=== PATIENT | male | born 1995 | race Caucasian/White ===

== ENCOUNTER 2016-12-25 04:27 | Emergency (ER) | payer BC, OTHER ==
[~2016-12-25] VITALS: Ht 182.9 cm; Wt 161.0 kg
[2016-12-25 04:35] VITALS: Ht 182.9 cm; Wt 161.0 kg
[2016-12-25] MEDS ORDERED: morphine 2 MG INJ IV STA (04:57)
[2016-12-25] MEDS ORDERED: METOCLOPRAMIDE 10 MG INJ IV STA (04:57)
[2016-12-25] MEDS ORDERED: SOD CHLORIDE 0.9% 1,000 ML IV STA (04:57)
[2016-12-25] MEDS ORDERED: CIPR500T4 PO (05:18)
--- NOTE | 2016-12-25 05:18 | ERD ---
ER Documentation Chief Complaint Date/Time DATE: 12/25/16 TIME: 05:17 Chief Complaint vomiting, diarrhea, body aches HPI 21-year-old male presents to emergency department for complaint of generalized abdominal pain and vomiting diarrhea and bodyaches for 2 weeks now. Patient was seen by primary doctor, was placed on medications, patient was taking ciprofloxacin, Zofran, to help with symptoms but only with mild relief. Patient states that symptoms actually got prolonged and worse. Patient is quite of generalized abdominal pain, cramping pain, 4/10 scale, is accompanying the other symptoms. Patient does not have any fever or chills. Patient does not have any recent travel. Patient denies any flank pain. Patient denies any blood in stool or black stool. ROS All systems reviewed and are negative except as per history of present illness. Medications Home Meds Active Scripts Metoclopramide* (Reglan*) 10 Mg Tablet, 10 MG PO Q6 Y for NAUSEA AND/OR VOMITING , #10 TAB Prov:LUIS ANGEL BRYANT PER DIEM PHYSICAL THERAPIST ASSISTANT 12/25/16 Ibuprofen* (Motrin*) 600 Mg Tab, 600 MG PO Q6H Y for PAIN AND OR ELEVATED TEMP, #30 TAB Prov:LUIS ANGEL BRYANT PER DIEM PHYSICAL THERAPIST ASSISTANT 12/25/16 Dicyclomine Hcl* (Bentyl*) 10 Mg Capsule, 20 MG PO QID, #20 CAP Prov:LUIS ANGEL BRYANT PER DIEM PHYSICAL THERAPIST ASSISTANT 12/25/16 Reported Medications Ciprofloxacin Hcl* (Ciprofloxacin Hcl*) Unknown Strength Tablet, PO BID for 7 Days, TAB 12/25/16 Allergies Allergies: Coded Allergies: No Known Allergy (Unverified , 12/25/16) PMhx/Soc Medical and Surgical Hx: pt denies Medical Hx, pt denies Surgical Hx Hx Alcohol Use: No Hx Substance Use: No Hx Tobacco Use: Yes Smoking Status: Current every day smoker Physical Exam Vitals Vital Signs Date Time Temp Pulse Resp B/P Pulse Ox O2 Delivery O2 Flow Rate FiO2 12/25/16 05:50 94 12/25/16 04:35 99.3 110 20 136/66 98 Physical Exam GENERAL: The patient is well developed and appropriate for usual state of health, in no apparent distress. CHEST: Clear to auscultation bilaterally. There are no rales, wheezes or rhonchi. HEART: Regular rate and rhythm. No murmurs, clicks, rubs or gallops. No S3 or S4. ABDOMEN: Soft, nontender and nondistended. Hyperactive bowel sounds. No rebound or guarding. No gross peritonitis. No gross organomegaly or masses. No Romero sign or McBurney point tenderness. BACK: No midline or flank tenderness. EXTREMITIES: Equal pulses bilaterally. There is no peripheral clubbing, cyanosis or edema. No focal swelling or erythema. Full range of motion. Grossly neurovascularly intact. NEURO: Alert and oriented. Cranial nerves 2-12 intact. Motor strength in all 4 extremities with 5/5 strength. Sensation grossly intact. Normal speech and gait. SKIN: There is no apparent rash or petechia. The skin is warm and dry. HEMATOLOGIC AND LYMPHATIC: There is no evidence of excessive bruising or lymphedema. No gross cervical, axillary, or inguinal lymphadenopathy. Result Diagram: 12/25/16 0505 12/25/16 0505 Results 24 hrs Laboratory Tests Test 12/25/16 05:05 12/25/16 05:22 Alanine Aminotransferase (ALT/SGPT) 114IU/L Albumin 3.6g/dl Albumin/Globulin Ratio 0.94 Alkaline Phosphatase 162IU/L Anion Gap 15 Aspartate Amino Transf (AST/SGOT) 65IU/L Basophils # 0.110^3/ul Basophils % 1.0% Blood Urea Nitrogen 6mg/dl Calcium Level 8.5mg/dl Carbon Dioxide Level 28mmol/L Chloride Level 99mmol/L Creatinine 0.78mg/dl Direct Bilirubin 0.00mg/dl Eosinophils # 0.710^3/ul Eosinophils % 5.2% Globulin 3.80g/dl Glucose Level 102mg/dl Hematocrit 39.8% Hemoglobin 13.5g/dl Indirect Bilirubin 0.5mg/dl Lipase 40U/L Lymphocytes # 2.110^3/ul Lymphocytes % 16.4% Mean Corpuscular Hemoglobin 30.3pg Mean Corpuscular Hemoglobin Concent 33.9g/dl Mean Corpuscular Volume 89.2fl Mean Platelet Volume 10.0fl Monocytes # 0.810^3/ul Monocytes % 6.5% Neutrophils # 8.810^3/ul Neutrophils % 68.9% Nucleated Red Blood Cells # 0.010^3/ul Nucleated Red Blood Cells % 0.0/100WBC Platelet Count 45218^3/UL Potassium Level 3.4mmol/L Red Blood Count 4.4610^6/ul Red Cell Distribution Width 11.9% Sodium Level 139mmol/L Total Bilirubin 0.5mg/dl Total Protein 7.4g/dl White Blood Count 12.710^3/ul Bedside Urine Blood Negative Bedside Urine Glucose (UA) Negative Bedside Urine Ketones (LAB) Negative Bedside Urine Leukocyte Esterase (L Negative Bedside Urine Nitrite (LAB) Negative Bedside Urine Protein (LAB) 1+ Bedside Urine pH (LAB) 7.0 Current Medications Medications (Trade) Dose Ordered Sig/Akbar Route PRN Reason Start Time Stop Time Status Last Admin Dose Admin Sodium Chloride (NS) 1,000 ml @ 1,000 mls/hr Q1H STAT IV 12/25/16 04:57 12/25/16 05:56 12/25/16 05:08 Morphine Sulfate (morphine) 2 mg ONCE STAT IV 12/25/16 04:57 12/25/16 04:58 DC 12/25/16 05:08 Metoclopramide HCl (Reglan) 10 mg ONCE STAT IV 12/25/16 04:57 12/25/16 04:58 DC 12/25/16 05:07 Patient was given Reglan here in the emergency department. After treatment, patient was able to tolerate po fluids here in the emergency department without any vomiting. There is no signs and symptoms of dehydration. Normal saline IV bolus was given here in emergency department for rehydration, patient tolerated IV fluids.Patient was given medication for pain here in emergency department, after treatment, patient verbalized feeling much better. Patient's pain is improved. PROCEDURE: CT Abdomen and Pelvis without contrast. CLINICAL INDICATION: Abdominal pain. TECHNIQUE: Routine axial tomographic images of the abdomen and pelvis were obtained from the domes the diaphragm to the symphysis pubis. The patient was scanned withoutoral or intravenous contrast. Coronal and sagittal reformatted images were obtained from the axial source images. Images were reviewed on a high-resolution PACS workstation. The total exam CTDI equals 23.88 mGy and the total exam DLP equals 1879.37 mGy-cm. One or more of the following dose reduction techniques were used: Automated exposure control, adjustment of the mA and / or kV according to patient size, or use of iterative reconstruction technique. COMPARISON: None. FINDINGS: The visualized portions of the lung bases are clear. Evaluation of the intra-abdominal solid organs is somewhat limited on this noncontrast examination. The liver appears normal in size. There is no intra or extrahepatic biliary dilatation. The gallbladder is unremarkable by CT criteria. The spleen, pancreas, and adrenal glands are unremarkable. The kidneys are symmetric in size. No renal, ureteral, or bladder calculi are identified. No perinephric inflammatory changes are identified. The urinary bladder is grossly unremarkable. The bowel demonstrates normal course and caliber. There is no evidence of bowel obstruction. The appendix is normal in appearance. The pelvic organs are grossly unremarkable. No intraperitoneal free fluid, free air, or abscess is identified. There are shoddy para-aortic and mesenteric lymph nodes. No retroperitoneal, mesenteric, or inguinal lymphadenopathy is identified. The aorta is normal in caliber. The osseous structures are unremarkable. No significant subcutaneous soft tissue abnormalities are seen. IMPRESSION: 1. Limited noncontrast CT of the abdomen and pelvis. No acute intra-abdominal abnormality identified. 2. Multiple shoddy periaortic and mesenteric lymph nodes, not pathologic by CT size criteria, nonspecific finding. RPTAT: HH .Kell Altamirano MD, MD Date Time Electronically viewed and signed by .Kell Altamirano MD, MD on 12/25/2016 05 :41 .G/ CC: LUIS ANGEL BRYANT PER DIEM PHYSICAL THERAPIST ASSISTANT Procedures/MDM Medical Decision Making: Patient symptoms is likely consistent with acute gastroenteritis, most likely viral, patient was rehydrated here in emergency department, Reglan was given for vomiting since Zofran was not helping, patient verbalizing much better after medication here in emergency department. There is low suspicion for abdominal emergencies at this time. Patients abdominal exam is normal at this time. Patients radiology exam does not show any abdominal emergencies at this time. There is low suspicion for appendicitis, cholecystitis , abdominal aortic aneurysms or peritonitis at this time. There is low suspicion for sepsis. Patient appears well and is hemodynamically stable. Disposition: Home. Condition: Stable Prescription Bentyl, Reglan, ibuprofen Instructions: Patient is advised to take medications as prescribed. Patient is advised to rest, increase fluid intake and do brat diet for next 1-2 days and progress as tolerated. Patient is advised that if symptoms are worse, severe abdominal pain, uncontrolled vomiting, high fever, severe flank pain, worst signs and symptoms, to return to the emergency department immediately. Otherwise, patient can follow up with primary care doctor in 5-7 days. Departure Diagnosis: Primary Impression: Acute gastroenteritis Condition: Stable Patient Instructions: Gastroenteritis, Viral (6Y-Adult) Additional Instructions: Patient is advised to take medications as prescribed. Patient is advised to rest , increase fluid intake and do brat diet for next 1-2 days and progress as tolerated. Patient is advised that if symptoms are worse, severe abdominal pain , uncontrolled vomiting, high fever, severe flank pain, worst signs and symptoms , to return to the emergency department immediately. Otherwise, patient can follow up with primary care doctor in 5-7 days. LUIS ANGEL BRYANT NP Dec 25, 2016 05:18
[2016-12-25 05:22] LABS: ADD SCAN DIFF NO
[2016-12-25 05:24] LABS: URINE BLOOD (Dip) POC Negative (NEGATIVE)
[2016-12-25 05:29] LABS: BASOPHIL # 0.1 10^3/ul (0.0-0.1); EOSINOPHILS # 0.7 10^3/ul (0.0-0.5); EOSINOPHILS % 5.2 % (0.0-7.0); HEMATOCRIT 39.8 % (42.0-52.0); HEMOGLOBIN 13.5 g/dl (14.0-18.0); LYMPHOCYTES # 2.1 10^3/ul (0.8-2.9); LYMPHOCYTES % 16.4 % (15.0-51.0); MEAN CORPUSCULAR HEMOGLOBIN 30.3 pg (29.0-33.0); MEAN CORPUSCULAR HGB CONC 33.9 g/dl (32.0-37.0); MEAN CORPUSCULAR VOLUME 89.2 fl (82.0-101.0); MONOCYTE # 0.8 10^3/ul (0.3-0.9); MONOCYTES % 6.5 % (0.0-11.0); NEUTROPHIL # 8.8 10^3/ul (1.6-7.5); NEUTROPHILS % 68.9 % (39.0-77.0); PLATELET COUNT 338 10^3/UL (140-415); RED BLOOD COUNT 4.46 10^6/ul (4.70-6.10); RED CELL DISTRIBUTION WIDTH 11.9 % (11.5-14.5); WHITE BLOOD COUNT 12.7 10^3/ul (4.8-10.8)
[2016-12-25 05:35] LABS: ALBUMIN 3.6 g/dl (3.3-4.9)
[2016-12-25 05:36] LABS: POTASSIUM 3.4 mmol/L (3.5-5.1)
[2016-12-25 05:38] LABS: ALBUMIN/GLOBULIN RATIO 0.94; BILIRUBIN,INDIRECT 0.5 mg/dl (0-1.1); BILIRUBIN,TOTAL 0.5 mg/dl (0.2-1.3); CALCIUM 8.5 mg/dl (8.4-10.2); CREATININE 0.78 mg/dl (0.61-1.24); TOTAL PROTEIN 7.4 g/dl (6.1-8.1)
--- NOTE | 2016-12-25 05:41 | RADRPT ---
PROCEDURE: CT Abdomen and Pelvis without contrast. CLINICAL INDICATION: Abdominal pain. TECHNIQUE: Routine axial tomographic images of the abdomen and pelvis were obtained from the domes the diaphragm to the symphysis pubis. The patient was scanned withoutoral or intravenous contrast. Coronal and sagittal reformatted images were obtained from the axial source images. Images were re viewed on a high-resolution PACS workstation. The total exam CTDI equals 23.88 mGy and the total exa m DLP equals 1879.37 mGy-cm. One or more of the following dose reduction techniques were used: Aut omated exposure control, adjustment of the mA and / or kV according to patient size, or use of itera tive reconstruction technique. COMPARISON: None. FINDINGS: The visualized portions of the lung bases are clear. Evaluation of the intra-abdominal solid or radha is somewhat limited on this noncontrast examination. The liver appears normal in size. There is no intra or extrahepatic biliary dilatation. The gallbladder is unremarkable by CT criteria. Th e spleen, pancreas, and adrenal glands are unremarkable. The kidneys are symmetric in size. No renal, ureteral, or bladder calculi are identified. No perine phric inflammatory changes are identified. The urinary bladder is grossly unremarkable. The bowel demonstrates normal course and caliber. There is no evidence of bowel obstruction. The a ppendix is normal in appearance. The pelvic organs are grossly unremarkable. No intraperitoneal fr ee fluid, free air, or abscess is identified. There are shoddy para-aortic and mesenteric lymph node s. No retroperitoneal, mesenteric, or inguinal lymphadenopathy is identified. The aorta is normal i n caliber. The osseous structures are unremarkable. No significant subcutaneous soft tissue abnormalities are seen. IMPRESSION: 1. Limited noncontrast CT of the abdomen and pelvis. No acute intra-abdominal abnormality identifi ed. 2. Multiple shoddy periaortic and mesenteric lymph nodes, not pathologic by CT size criteria, nonsp ecific finding. RPTAT: HH .Kell Altamirano MD, Date Time Electronically viewed and signed by .Kell Altamirano MD, on 12/25/2016 05:41 .G/
[2016-12-25 05:50] VITALS: PULSE 94
[2016-12-25] MEDS ORDERED: IBUP-1542 PO (05:50)
[2016-12-25] MEDS ORDERED: METO10TA92 PO (05:50)
[2016-12-25] MEDS ORDERED: DICY10CA60 PO (05:50)
== END 2016-12-25 06:01 | disposition home or self-care (01) ==
LOC: FTE 04:27
DX: K52.9 Noninfective gastroenteritis and colitis, unspecified (principal); F17.210 Nicotine dependence, cigarettes, uncomplicated
CPT/HCPCS: 36415; 74176; 80053; 81003; 83690; 85025; 96374; 96375; J2270; J2765; J7030; Z7502